=== PATIENT | female | born 1995 | race Caucasian/White ===

== ENCOUNTER 2021-08-02 18:31 | Emergency (ER) | payer OTHER, MEDICAID ==
[~2021-08-02] VITALS: Ht 160 cm; Wt 61.4 kg
[2021-08-02] MEDS ORDERED: cyclobenzaprine 10mg tablet PO ONE (18:50)
[2021-08-02] MEDS ORDERED: IBUP-1986 PO (18:56)
[2021-08-02] MEDS ORDERED: CYCL-1 PO (18:56)
[2021-08-02 19:03] VITALS: BP 130/74
== END 2021-08-02 19:05 | disposition home or self-care (01) ==
LOC: EEVIPCON 18:31 → ER 18:31
DX: M79.18 Myalgia, other site (principal); M25.552 Pain in left hip; Z79.899 Other long term (current) drug therapy; V89.2XXA Person injured in unspecified motor-vehicle accident, traffic, initial encounter; Y93.89 Activity, other specified; Y92.89 Other specified places as the place of occurrence of the external cause; Y99.8 Other external cause status
CPT/HCPCS: 99283